=== PATIENT | female | born 1960 | race Caucasian/White ===

== ENCOUNTER → 2019-10-07 | Outpatient (CLI) | payer OTHER ==
[~2019-10-07] MED LIST: ESTNOR PO; LISI20 PO; Pravachol PO
[2019-10-08 13:07] LABS: HPV 16 Negative (Negative); HPV 18 Negative (Negative); HPV OTHER HR TYPES Negative (Negative)
== END | disposition home or self-care (01) ==
LOC: LAB 11:50 → LAB SHORT 11:50
PROVIDERS: Obstetrics & Gynecology
DX: Z01.419 Encounter for gynecological examination (general) (routine) without abnormal findings (principal)
CPT/HCPCS: 87624; G0123

== ENCOUNTER 2023-01-23 06:40 | Day surgery (SDC) | payer OTHER ==
[~2023-01-23] VITALS: Ht 170.2 cm; Wt 90.1 kg
[~2023-01-23 06:40] MED LIST changes: +AMLO5 PO; +FOLI1 PO; +KLOR-CON 1010 ME9 PO; +LOSARTAN-HCTZ1 EAC5 PO; +METF500 PO; +METTREX2.5; +PANT40 PO
[2023-01-23] MEDS ORDERED: PRAV20 (06:56)
[2023-01-23 09:11] VITALS: BP 98/54
== END 2023-01-23 09:10 | disposition home or self-care (01) ==
LOC: ORSCSDS 06:40
PROVIDERS: Student in an Organized Health Care Education/Training Program
PROC: 0DBL8ZX Excision of Transverse Colon, Via Natural or Artificial Opening Endoscopic, Diagnostic (ICD-10-PCS; principal; 2023-01-23 08:00)
PROC: 0DBH8ZX Excision of Cecum, Via Natural or Artificial Opening Endoscopic, Diagnostic (ICD-10-PCS; principal; 2023-01-23 08:00)
PROC: 0DBN8ZX Excision of Sigmoid Colon, Via Natural or Artificial Opening Endoscopic, Diagnostic (ICD-10-PCS; principal; 2023-01-23 08:00)
DX: Z12.11 Encounter for screening for malignant neoplasm of colon (principal); K51.40 Inflammatory polyps of colon without complications; K63.5 Polyp of colon; K64.8 Other hemorrhoids; K64.4 Residual hemorrhoidal skin tags; K62.89 Other specified diseases of anus and rectum; I10 Essential (primary) hypertension; E78.5 Hyperlipidemia, unspecified; G47.33 Obstructive sleep apnea (adult) (pediatric); R73.03 Prediabetes; Z79.84 Long term (current) use of oral hypoglycemic drugs; Z79.899 Other long term (current) drug therapy
CPT/HCPCS: 82947; 88305; J2704; J7120

== ENCOUNTER → 2025-05-20 | Outpatient (CLI) | payer OTHER ==
[~2025-05-20] MED LIST changes: +PRAV20
[2025-05-20 15:36] LABS: Creatinine, Urine Random 131.0 mg/dL (27.00-270.00); Microalb/Creat Ratio UR, Rand 23.74 mg/g (0.000-30.000); Microalbumin, Random Urine 31.1 mg/L (0.000-20.000)
== END ==
LOC: LAB 10:10 → LAB SHORT 10:10
PROVIDERS: Internal Medicine
DX: E11.9 Type 2 diabetes mellitus without complications (principal)
CPT/HCPCS: 82043; 82570